=== PATIENT | male | born 1940 | race Asian ===

== ENCOUNTER 2022-12-24 13:14 | Emergency (ER) | payer MEDICARE ==
[~2022-12-24] VITALS: Ht 175.3 cm; Wt 61.3 kg
[~2022-12-24 13:14] MED LIST: ACET-3385 PO; BACI28OI9 TP
[2022-12-24] MEDS ORDERED: AMLO2.5T29 PO (13:35)
[2022-12-24] MEDS ORDERED: CARV3.1231 PO (13:35)
[2022-12-24 15:16] LABS: BASOPHILS % (AUTO) 0.2 % (0.0-2.0); EOSINOPHILS % (AUTO) 0.4 % (1.0-6.0); HEMATOCRIT 34.6 % (41-53); HEMOGLOBIN 11.4 g/dL (13.5-17.5); LYMPHOCYTES # (AUTO) 1.4 K/uL (1.0-4.8); LYMPHOCYTES % (AUTO) 23.1 % (22.0-44.0); MEAN CORPUSCULAR VOLUME 91 fL (80-100); MONOCYTES # (AUTO) 0.4 K/uL (0.1-1.0); MONOCYTES % (AUTO) 6.9 % (2.0-9.0); NEUTROPHILS # (AUTO) 4.1 K/uL (1.8-7.7); NEUTROPHILS % (AUTO) 69.4 % (40.0-70.0); PLATELET COUNT (AUTO) 255 K/uL (150-450); RED BLOOD CELL COUNT(AUTO) 3.81 MIL/uL (4.50-5.90); RED CELL DISTRIBUTION WIDTH 13.9 % (11.5-14.5)
[2022-12-24 15:31] LABS: PROTHROMBIN TIME 11.1 SEC (9.4-11.6)
[2022-12-24 15:37] LABS: CALCIUM, TOTAL 9.5 mg/dL (8.8-10.5); CREATININE 1.45 mg/dL (0.60-1.30)
[2022-12-24 16:02] LABS: ALBUMIN 4.2 g/dL (3.4-5.0); BILIRUBIN,TOTAL 1.1 mg/dL (0.1-1.0); TOTAL PROTEIN, SERUM 7.9 g/dL (6.4-8.2)
[2022-12-24] MEDS ORDERED: SODIUM CHLORIDE 0.9% 1,000 ML IV ONE (18:45)
[2022-12-24] MEDS ORDERED: AMLO5TAB66 PO (18:57)
[2022-12-24] MEDS ORDERED: HYDR25TA84 PO (18:57)
[2022-12-24] MEDS ORDERED: CARV12.530 PO (18:57)
[2022-12-24] MEDS ORDERED: ROSU10TA72 PO (18:57)
[2022-12-24] MEDS ORDERED: FLUT16SP NASAL (20:17)
[2022-12-24 20:32] VITALS: BP 149/72
== END 2022-12-24 20:45 | disposition home or self-care (01) ==
LOC: EMS 13:18
DX: R42 Dizziness and giddiness (principal); I10 Essential (primary) hypertension
CPT/HCPCS: 70450; 71045; 72125; 80053; 82550; 83880; 84484; 85025; 85610; 85730; 93005; 96360; 99285

== ENCOUNTER 2023-02-15 14:32 | Emergency (ER) | payer MEDICARE ==
[~2023-02-15] VITALS: Ht 167.6 cm; Wt 52.3 kg
[~2023-02-15 14:32] MED LIST changes: -ACET-3385 PO; +AMLO5TAB66 PO; -BACI28OI9 TP; +CARV12.530 PO; +FLUT16SP NASAL; +HYDR25TA84 PO; +ROSU10TA72 PO
[2023-02-15] MEDS ORDERED: ACET-2247 PO (17:33)
[2023-02-15] MEDS ORDERED: ACETAMINOPHEN 500 MG TABLET PO ONE (17:45)
[2023-02-15 18:06] VITALS: BP 135/74
== END 2023-02-15 18:22 | disposition home or self-care (01) ==
LOC: EMS 14:34
DX: S52.501A Unspecified fracture of the lower end of right radius, initial encounter for closed fracture (principal); S00.83XA Contusion of other part of head, initial encounter; I10 Essential (primary) hypertension; W01.0XXA Fall on same level from slipping, tripping and stumbling without subsequent striking against object, initial encounter; Y93.89 Activity, other specified; Y92.89 Other specified places as the place of occurrence of the external cause; Y99.8 Other external cause status
CPT/HCPCS: 29105; 99284; 73110-TC; 73130-TC; Z7502; Z7610